=== PATIENT | male | born 1970 | race African-American/Black ===

== ENCOUNTER 2022-03-29 12:35 | Inpatient (IN) | payer BC, MEDICAID ==
[~2022-03-29] VITALS: Ht 177.8 cm; Wt 108.0 kg
[2022-03-29] MEDS ORDERED: ONDANSETRON HCL 4MG/2ML INJ IV ONE (13:45)
[2022-03-29 13:53] LABS: BASOPHILS % 0.4 % (0.0-2.0); EOSINOPHILS % 0.8 % (0.0-5.0); HEMATOCRIT. 48.6 % (42.0-52.0); HEMOGLOBIN. 16.3 g/dL (14.0-18.0); LYMPHOCYTES % 12.4 % (20.0-50.0); MEAN CORPUSCULAR HEMOGLOBIN 29.3 pg (28.0-32.0); MEAN CORPUSCULAR VOLUME 87.7 fL (80.0-94.0); MEAN PLATELET VOLUME 8.8 fl (7.4-10.4); MONOCYTES % 5.4 % (2.0-8.0); PLATELET 267 x1000/uL (130-400); RED BLOOD CELL COUNT 5.55 mill/uL (4.7-6.1); RED CELL DISTRIBUTION WIDTH 14.1 % (11.6-14.6)
[2022-03-29 13:58] LABS: CHLORIDE 98 mEq/L (98-107)
[2022-03-29] MEDS ORDERED: CEFTRIAXONE 1 G PREMIX 50 ML IV ONE (16:45)
[2022-03-29] MEDS ORDERED: AZITHROMYCIN 500MG/250ML 250 ML IV ONE (16:45)
[2022-03-29 16:54] LABS: CLARITY URINE CLEAR (CLEAR); COLOR URINE YELLOW (YELLOW); KETONES URINE TRACE (NEGATIVE); LEUKOCYTE ESTERASE URINE NEGATIVE (NEGATIVE); NITRITE URINE NEGATIVE (NEGATIVE); OCCULT BLOOD URINE NEGATIVE (NEGATIVE); PH URINE 7.5 (4.5-8.0); PROTEIN URINE TRACE (NEGATIVE); SPECIFIC GRAVITY URINE 1.021 (1.005-1.030)
[2022-03-29] MEDS ORDERED: ACETAMINOPHEN 325MG TABLET PO ONE (17:00)
[2022-03-30] VITALS (7 sets, daily range): BP systolic 126–147; BP diastolic 70–85
[2022-03-30] MEDS ORDERED: BUDE6HFA IH (00:45)
[2022-03-30] MEDS ORDERED: triamterene PO (00:45)
[2022-03-30] MEDS ORDERED: POTASSIUM CHLORIDE 20MEQ TABLET SR PO NR (01:15)
[2022-03-30] MEDS ORDERED: DEXTROSE 50% WATER 50ML SYRINGE IV PRN (01:30)
[2022-03-30] MEDS ORDERED: CEFTRIAXONE 1 G PREMIX 50 ML IV SCH (01:30)
[2022-03-30] MEDS: HYDROCODONE/ACETAMINOPHEN 5/325MG TABLET PO PRN ×2 (01:40→22:44)
[2022-03-30] MEDS ORDERED: DYR5 PO (04:00)
[2022-03-30] MEDS: IPRATROPIUM/ALBUTEROL 0.5-3(2.5)MG/3ML NEB HHN SCH ×4 (04:14→20:42)
[2022-03-30] MEDS ORDERED: NALOXONE HCL 0.4MG/ML VIAL IV PRN (07:00)
[2022-03-30] MEDS: BLOOD SUGAR DIAGNOSTIC STRIP TEST SCH ×4 (07:09→21:00)
[2022-03-30 07:39] LABS: BASOPHILS % 0.4 % (0.0-2.0); EOSINOPHILS % 1.2 % (0.0-5.0); HEMATOCRIT. 45.3 % (42.0-52.0); HEMOGLOBIN. 15.2 g/dL (14.0-18.0); MEAN CORPUSCULAR HEMOGLOBIN 29.4 pg (28.0-32.0); MEAN CORPUSCULAR VOLUME 87.6 fL (80.0-94.0); MEAN PLATELET VOLUME 9.2 fl (7.4-10.4); MONOCYTES % 9.3 % (2.0-8.0); NEUTROPHILS % 71.1 % (40.0-76.0); PLATELET 247 x1000/uL (130-400); RED BLOOD CELL COUNT 5.18 mill/uL (4.7-6.1); RED CELL DISTRIBUTION WIDTH 14.5 % (11.6-14.6)
[2022-03-30] MEDS: ONDANSETRON HCL 4MG/2ML INJ IV PRN ×2 (08:21→17:14)
[2022-03-30] MEDS: ENOXAPARIN 30MG/0.3ML SYR SUBCUT SCH ×2 (08:21→21:05)
[2022-03-30] MEDS: PANTOPRAZOLE 40MG DR TABLET PO SCH (08:21)
[2022-03-30] MEDS: INSULIN LISPRO 100 UNITS/ML SUBCUT SCH ×4 (08:23→21:00)
[2022-03-30 08:34] LABS: CHLORIDE 100 mEq/L (98-107)
[2022-03-30 08:41] LABS: HDL CHOLESTEROL 32 mg/dL (40-59); LDL CHOLESTEROL 100 mg/dL (5-100)
[2022-03-30] MEDS ORDERED: IPRATROPIUM/ALBUTEROL 0.5-3(2.5)MG/3ML NEB HHN SCH (09:00)
[2022-03-30] MEDS ORDERED: MORPHINE SULFATE 2 MG/ML CPJ (NOT FOR IM USE) IV NR (10:30)
[2022-03-30] MEDS: AZITHROMYCIN 500 MG in DEXT 5% WATER 250 ML IV SCH (16:12)
[2022-03-30] MEDS: CEFTRIAXONE 1,000 MG in DEXTROSE 5% WATER 50 ML IV SCH (16:12)
[2022-03-31] VITALS: BP 145/78
[2022-03-31 04:00] VITALS: BP 137/64
[2022-03-31] MEDS: PANTOPRAZOLE 40MG DR TABLET PO SCH (06:27)
[2022-03-31] MEDS: BLOOD SUGAR DIAGNOSTIC STRIP TEST SCH ×4 (06:27→20:15)
[2022-03-31 08:00] VITALS: BP 126/61
[2022-03-31] MEDS: ENOXAPARIN 30MG/0.3ML SYR SUBCUT SCH ×2 (08:37→20:15)
[2022-03-31] MEDS: INSULIN LISPRO 100 UNITS/ML SUBCUT SCH ×4 (08:38→20:15)
[2022-03-31] MEDS: HYDROCODONE/ACETAMINOPHEN 5/325MG TABLET PO PRN ×2 (08:44→20:15)
[2022-03-31 09:08] LABS: ANTI-DNA DOUBLE STRANDED QUANT < 1 IU/mL (0-9); ANTI-NUCLEAR ANTIBODIES DIRECT Negative (Negative)
[2022-03-31] MEDS: IPRATROPIUM/ALBUTEROL 0.5-3(2.5)MG/3ML NEB HHN SCH ×3 (09:44→20:56)
[2022-03-31 12:00] VITALS: BP 131/56
[2022-03-31] MEDS ORDERED: DIAZEPAM 2 MG TABLET PO NR (14:30)
[2022-03-31 16:00] VITALS: BP 148/86
[2022-03-31] MEDS: AZITHROMYCIN 500 MG in DEXT 5% WATER 250 ML IV SCH (16:53)
[2022-03-31] MEDS: CEFTRIAXONE 1,000 MG in DEXTROSE 5% WATER 50 ML IV SCH (16:53)
[2022-03-31 20:00] VITALS: BP 142/81
[2022-04-01] MEDS: IPRATROPIUM/ALBUTEROL 0.5-3(2.5)MG/3ML NEB HHN SCH ×4 (01:39→20:05)
[2022-04-01 04:00] VITALS: BP 122/60
[2022-04-01] MEDS: INSULIN LISPRO 100 UNITS/ML SUBCUT SCH ×4 (07:17→21:00)
[2022-04-01] MEDS: BLOOD SUGAR DIAGNOSTIC STRIP TEST SCH ×4 (07:17→20:25)
[2022-04-01 08:00] VITALS: BP 128/74
[2022-04-01] MEDS: FAMOTIDINE 20MG TABLET PO SCH ×2 (08:15→17:56)
[2022-04-01] MEDS: ENOXAPARIN 30MG/0.3ML SYR SUBCUT SCH ×2 (08:16→20:59)
[2022-04-01] MEDS: ONDANSETRON HCL 4MG/2ML INJ IV PRN (08:42)
[2022-04-01 12:00] VITALS: BP 129/64
[2022-04-01] MEDS: HYDROCODONE/ACETAMINOPHEN 5/325MG TABLET PO PRN ×2 (12:34→21:40)
[2022-04-01 16:00] VITALS: BP 143/56
[2022-04-01] MEDS: LACTULOSE 20G/30ML UDC PO PRN (17:56)
[2022-04-01] MEDS: CEFTRIAXONE 1,000 MG in DEXTROSE 5% WATER 50 ML IV SCH (17:56)
[2022-04-01] MEDS: AZITHROMYCIN 500 MG in DEXT 5% WATER 250 ML IV SCH (17:56)
[2022-04-01 20:00] VITALS: BP 135/66
[2022-04-02 04:00] VITALS: BP 136/58
[2022-04-02 05:58] LABS: BASOPHILS % 0.5 % (0.0-2.0); EOSINOPHILS % 0.9 % (0.0-5.0); HEMOGLOBIN. 15.1 g/dL (14.0-18.0); LYMPHOCYTES % 17.7 % (20.0-50.0); MEAN CORPUSCULAR HEMOGLOBIN 29.3 pg (28.0-32.0); MEAN CORPUSCULAR VOLUME 86.9 fL (80.0-94.0); MEAN PLATELET VOLUME 9.4 fl (7.4-10.4); NEUTROPHILS % 71.9 % (40.0-76.0); PLATELET 251 x1000/uL (130-400); RED BLOOD CELL COUNT 5.17 mill/uL (4.7-6.1); RED CELL DISTRIBUTION WIDTH 14.1 % (11.6-14.6)
[2022-04-02 06:15] LABS: CHLORIDE 96 mEq/L (98-107)
[2022-04-02] MEDS: BLOOD SUGAR DIAGNOSTIC STRIP TEST SCH ×4 (07:23→21:00)
[2022-04-02 08:00] VITALS: BP 123/63
[2022-04-02] MEDS: ENOXAPARIN 30MG/0.3ML SYR SUBCUT SCH (08:10)
[2022-04-02] MEDS: FAMOTIDINE 20MG TABLET PO SCH ×2 (08:10→17:17)
[2022-04-02] MEDS: INSULIN LISPRO 100 UNITS/ML SUBCUT SCH ×4 (08:11→21:00)
[2022-04-02] MEDS: IPRATROPIUM/ALBUTEROL 0.5-3(2.5)MG/3ML NEB HHN SCH ×4 (08:41→20:50)
[2022-04-02 10:07] LABS: ANGIOTENSION CONVERTING ENZYME 23 U/L (14-82)
[2022-04-02] MEDS: HYDROCODONE/ACETAMINOPHEN 5/325MG TABLET PO PRN ×2 (10:26→19:38)
[2022-04-02 12:00] VITALS: BP 129/63
[2022-04-02] MEDS: QUETIAPINE FUMARATE 25MG TABLET PO SCH (12:41)
[2022-04-02 16:00] VITALS: BP 145/83
[2022-04-02] MEDS: CEFTRIAXONE 1,000 MG in DEXTROSE 5% WATER 50 ML IV SCH (16:38)
[2022-04-02] MEDS: AZITHROMYCIN 500 MG in DEXT 5% WATER 250 ML IV SCH (17:16)
[2022-04-02] MEDS ORDERED: POTASSIUM CHLORIDE 20MEQ TABLET SR PO NR (18:15)
[2022-04-02] MEDS: SODIUM CHLORIDE 0.9% 1,000 ML IV SCH (18:37)
[2022-04-02 20:00] VITALS: BP 150/89
[2022-04-02] MEDS: MORPHINE SULFATE 2 MG/ML CPJ (NOT FOR IM USE) IV PRN (23:08)
[2022-04-03] VITALS: BP 153/72
[2022-04-03] MEDS: HYDROCODONE/ACETAMINOPHEN 5/325MG TABLET PO PRN (01:54)
[2022-04-03 04:00] VITALS: BP 161/68
[2022-04-03 05:54] LABS: BASOPHILS % 0.5 % (0.0-2.0); EOSINOPHILS % 0.3 % (0.0-5.0); HEMATOCRIT. 43.6 % (42.0-52.0); HEMOGLOBIN. 15.1 g/dL (14.0-18.0); MEAN CORPUSCULAR HEMOGLOBIN 29.7 pg (28.0-32.0); MEAN CORPUSCULAR VOLUME 85.7 fL (80.0-94.0); MONOCYTES % 10.1 % (2.0-8.0); NEUTROPHILS % 77.1 % (40.0-76.0); PLATELET 251 x1000/uL (130-400); RED BLOOD CELL COUNT 5.09 mill/uL (4.7-6.1); RED CELL DISTRIBUTION WIDTH 13.8 % (11.6-14.6)
[2022-04-03] MEDS: BLOOD SUGAR DIAGNOSTIC STRIP TEST SCH ×4 (06:03→20:38)
[2022-04-03] MEDS: FAMOTIDINE 20MG TABLET PO SCH ×2 (06:03→17:32)
[2022-04-03] MEDS: INSULIN LISPRO 100 UNITS/ML SUBCUT SCH ×4 (06:03→20:43)
[2022-04-03 07:22] LABS: CHLORIDE 94 mEq/L (98-107)
[2022-04-03 08:00] VITALS: BP 115/63
[2022-04-03] MEDS: SODIUM CHLORIDE 0.9% 1,000 ML IV SCH ×2 (08:42→21:00)
[2022-04-03] MEDS: QUETIAPINE FUMARATE 25MG TABLET PO SCH (08:42)
[2022-04-03] MEDS: IPRATROPIUM/ALBUTEROL 0.5-3(2.5)MG/3ML NEB HHN SCH ×4 (08:57→21:25)
[2022-04-03] MEDS ORDERED: POTASSIUM CHLORIDE 20MEQ TABLET SR PO NR (10:30)
[2022-04-03 12:00] VITALS: BP 125/60
[2022-04-03 16:00] VITALS: BP 123/73
[2022-04-03] MEDS: CEFTRIAXONE 1,000 MG in DEXTROSE 5% WATER 50 ML IV SCH (16:15)
[2022-04-03] MEDS: MORPHINE SULFATE 2 MG/ML CPJ (NOT FOR IM USE) IV PRN (16:15)
[2022-04-03] MEDS: AZITHROMYCIN 500 MG in DEXT 5% WATER 250 ML IV SCH (17:32)
[2022-04-03 20:00] VITALS: BP 128/72
[2022-04-03] MEDS: LACTULOSE 20G/30ML UDC PO PRN (20:37)
[2022-04-04] VITALS: BP 119/72
[2022-04-04] MEDS: MORPHINE SULFATE 2 MG/ML CPJ (NOT FOR IM USE) IV PRN ×3 (02:05→21:38)
[2022-04-04 04:00] VITALS: BP 155/71
[2022-04-04] MEDS: ACETAMINOPHEN 325MG TABLET PO PRN (05:30)
[2022-04-04 08:00] VITALS: BP 144/88
[2022-04-04] MEDS: INSULIN LISPRO 100 UNITS/ML SUBCUT SCH ×4 (08:10→21:38)
[2022-04-04] MEDS: QUETIAPINE FUMARATE 25MG TABLET PO SCH (08:37)
[2022-04-04] MEDS: BLOOD SUGAR DIAGNOSTIC STRIP TEST SCH ×4 (08:37→21:38)
[2022-04-04] MEDS: FAMOTIDINE 20MG TABLET PO SCH ×2 (08:37→17:57)
[2022-04-04] MEDS: IPRATROPIUM/ALBUTEROL 0.5-3(2.5)MG/3ML NEB HHN SCH ×4 (08:53→19:48)
[2022-04-04] MEDS: SODIUM CHLORIDE 0.9% 1,000 ML IV SCH ×2 (10:15→23:56)
[2022-04-04 12:00] VITALS: BP 140/76
[2022-04-04] MEDS ORDERED: SODIUM CHLORIDE 3% 500ML IV SOLN IV ONE (15:15)
[2022-04-04] MEDS ORDERED: SODIUM CHLORIDE 3% 160 ML IV NR (15:30)
[2022-04-04 16:00] VITALS: BP 162/85
[2022-04-04] MEDS: FUROSEMIDE 40MG TABLET PO SCH (16:58)
[2022-04-04 20:00] VITALS: BP 156/72
[2022-04-05] VITALS: BP 107/74
[2022-04-05 04:00] VITALS: BP 144/77
[2022-04-05] MEDS: IPRATROPIUM/ALBUTEROL 0.5-3(2.5)MG/3ML NEB HHN SCH ×4 (04:34→16:17)
[2022-04-05] MEDS: MORPHINE SULFATE 2 MG/ML CPJ (NOT FOR IM USE) IV PRN (06:35)
[2022-04-05 08:00] VITALS: BP 162/84
[2022-04-05] MEDS: BLOOD SUGAR DIAGNOSTIC STRIP TEST SCH ×3 (08:01→17:57)
[2022-04-05] MEDS: INSULIN LISPRO 100 UNITS/ML SUBCUT SCH ×3 (08:02→18:12)
[2022-04-05] MEDS: FAMOTIDINE 20MG TABLET PO SCH ×2 (08:20→18:08)
[2022-04-05] MEDS: FUROSEMIDE 40MG TABLET PO SCH (08:20)
[2022-04-05] MEDS: QUETIAPINE FUMARATE 25MG TABLET PO SCH (08:20)
[2022-04-05 12:00] VITALS: BP 138/84
[2022-04-05 16:00] VITALS: BP 155/91
[2022-04-05] MEDS: ACETAMINOPHEN 325MG TABLET PO PRN (18:08)
[2022-04-05 18:21] VITALS: BP 139/53
== END 2022-04-05 20:57 | disposition home or self-care (01) | DRG 194 ==
LOC: ER 12:47 → 7WST 20:02 → ENRESERV 23:00 → ER 03-30 00:26
PROVIDERS: ADMIT Internal Medicine; ATTEND Internal Medicine
DX: J18.9 Pneumonia, unspecified organism (principal); E87.1 Hypo-osmolality and hyponatremia; I10 Essential (primary) hypertension; J45.909 Unspecified asthma, uncomplicated; E66.9 Obesity, unspecified; Z20.822 Contact with and (suspected) exposure to COVID-19; E11.9 Type 2 diabetes mellitus without complications; M47.812 Spondylosis without myelopathy or radiculopathy, cervical region; Z68.33 Body mass index [BMI] 33.0-33.9, adult; Z87.01 Personal history of pneumonia (recurrent); Z68.34 Body mass index [BMI] 34.0-34.9, adult
CPT/HCPCS: 36415; 71045; 71250; 80048; 80053; 80061; 81003; 82164; 82962; 83036; 83605; 83880; 84145; 84295; 84484; 85025; 85651; 86038; 86140; 86225; 87426; 93005; 94640; 99285; C9803; J0456; J0696; J1650; J1815; J2270; J2405; J7030; J7060